=== PATIENT | male | born 1990 | race Caucasian/White ===

== ENCOUNTER 2024-03-21 15:16 | Inpatient (IN) ==
--- NOTE | 2024-03-21 15:58 | Emergency Department Note ---
Impression & Plan Bipolar disorder ED Provider Note ED Provider Note NAME: DA Peraza GSCHWENDTNER AGE:34 SEX: Male : 1990 ARRIVES VIA: Private vehicle INFORMANT: Patient ED PROVIDER(s): Betsy Nowak DO CHIEF COMPLAINT: Referred here by gas furnace installer for mental health evaluation HPI: This is a 34-year-old male presents emergency department after he spoke with his gas furnace installer and they request that he come to the ER for inpatient mental health treatment. Patient states he has been feeling unwell over the last week as he had run out of his Latuda last week and was off the medication for 5 to 7 days. He did get it refilled and restarted approximately 4 days ago. He states since restarting it he has not felt any better. He states he cries frequently for no apparent reason, feels a sense of doom, has been sleeping more, becomes hyperfocused on things at times. He denies any injury or illness. No other change in any medications. He also follows further mental health treatment with [facility]. He denies any suicidal ideation although states he has had thoughts of self-harm however no distinct plan. He does have a prior remote history of self-harm and prior inpatient mental health treatment. PAST MEDICAL HISTORY:See Below PAST SURGICAL HISTORY:See Below FAMILY HISTORY:See Below SOCIAL HISTORY:See Below HOME MEDICATIONS:See Below ALLERGIES:See Below VITALS:See Below PHYSICAL EXAMINATION: GENERAL: alert, well appearing, well nourished, no distress, non-toxic EYE EXAM: normal conjunctiva, PERRL and EOM's grossly intact OROPHARYNX: no exudate, no erythema, lips, buccal mucosa, and tongue normal and mucous membranes are moist NECK: supple, no nuchal rigidity, no adenopathy, non-tender LUNGS: Clear to auscultation. Normal chest wall mechanics, no w/r/r HEART: no murmurs, S1 normal and S2 normal ABDOMEN: abdomen soft, non-tender, normo-active bowel sounds, no masses, no rebound or guarding. BACK: Back is symmetrical on inspection and there is no deformity, no midline tenderness, no CVA tenderness. SKIN: no rashes, petechiae, orbruising UPPER EXTREMITIES: upper extremities are grossly normal. FROM, nml pulses b/l. LOWER EXTREMITIES: No pitting edema. FROM, nml pulses b/l. NEURO EXAM: Normal sensorium, cranial nerves II-XII grossly intact, normal speech, no facial droop,nogross weakness of arms, no gross weakness of legs. Gross sensation intact. No ataxia. Vital Signs: reviewed and remarkable Differential Diagnosis: mood disorder, suicidal ideation, anxiety, depression, substance abuse, toxidrome, infection, hypoglycemia, electrolyte abnormalities, ICH as well as others were considered. MEDICAL DECISION MAKING: THis is a 34 yo male referred here by his manager rn case due to concern for increased depression and mood swings after recent lapse in medications. He does follow with outpatient psychiatry also. Labs collected and sent per protocol and reassuring. Patient seen by case repairer and does desire inpatient treatment. Patient will be referred to [facility]. Patient signed out awaiting final disposition. Consultation(s): 1717: Patient seen and evaluated by case management. Patient desires inpatient mental health treatment. He will be referred to [facility]. ER Treatment Provided: See below 181: Patient signed out to Dr. Griggs awaiting [facility] evaluation for possible admission. Diagnostics Interpreted By Me: -Laboratory studies: As stated above and show below. Triage Nursing Note Reviewed Prior/Outside Records Reviewed Past Med/Surg History Problem List (Updated 03/22/24 @ 12:47 by Tiera Carmona MD) Generalized anxiety disorder with panic attacks Borderline personality disorder Chronic fatigue Post traumatic stress disorder (PTSD) Major depressive disorder, recurrent episode, severe with anxious distress Major depression, recurrent Bipolar disorder (Acute) Insomnia Medical History (Updated 03/22/24 @ 12:47 by Tiera Carmona MD) ADHD History of lipoma Asthma Surgical History Hx of inguinal hernia repair Social History Smoking Status: Current every day smoker Tobacco Type: E-cigarettes / Vaping Preferred Language: Danish Communication Ability: Effective Spinning Supervisor Required: No Beliefs That Will Affect Care: None Feels Safe at Home: Yes Gender Identity: Male Assistive Devices: Glasses Allergies Allergies Allergy/AdvReac Type Severity Reaction Status Date / Time Penicillins Allergy Verified 03/22/24 10:28 Home Meds Home Medications Medication Instructions Recorded Confirmed albuterol sulfate 90 mcg/actuation 2 puff inhalation Q4 PRN Shortness 10/15/24 10/16/24 aerosol inhaler Of Breath clonazepam 1 mg tablet 1 mg PO BID PRN Anxiety 03/21/24 03/22/24 desvenlafaxine succinate 100 mg 100 mg PO DAILY 03/21/24 03/22/24 tablet,extended release 24 hr dextroamphetamine-amphetamine ER 20 mg PO DAILY 03/21/24 03/22/24 20 mg 24hr capsule,extend release lurasidone 120 mg tablet 120 mg PO PM 03/21/24 03/22/24 prazosin 2 mg capsule 4 mg PO HS 03/21/24 03/22/24 Results & Data (ED) Vital Signs Vital Signs - 24 hr 03/21/24 15:20 Temperature 36.8 C Temperature Source Temporal Artery Scan Pulse Rate 79 Respiratory Rate 18 Respiratory Effort / Characteristics Non-Labored Spontaneous Respiratory Depth Normal Respiratory Pattern Regular Blood Pressure 125/85 Blood Pressure Mean 98 Blood Pressure Position Sitting Pulse Oximetry 98 Oxygen Delivery Method Room Air Sepsis Recent Fever Within 48 Hours No Sepsis New/Unexplained Change in Mental Status No Sepsis Action Taken by Nursing No Action Required Laboratory Data 03/21/24 16:08 03/21/24 16:08 Lab Results 03/21/24 03/21/24 03/21/24 Range/Units 16:03 16:08 18:14 WBC 7.47 (4.8-10.8) K/ul RBC 5.32 (4.70-6.10) M/uL Hgb 16.5 (14.0-18.0) g/dl Hct 46.9 (42.0-52.0) % MCV 88.2 (80.0-100.0) fL MCH 31.0 (25.0-34.0) pg MCHC 35.2 (32.0-36.0) g/dL RDW Std Deviation 38.5 (36.4-46.3) fL RDW Coeff of Vinicio 12.0 (11.5-14.5) % Plt Count 185 (130-400) K/uL MPV 11.6 (9.4-12.4) fL Immature Gran % (Auto) 0.4 % Neut % (Auto) 59.3 % Lymph % (Auto) 28.8 % [place] % (Auto) 8.4 % Eos % (Auto) 2.4 % Baso % (Auto) 0.7 % Neut # (Auto) 4.43 (1.40-6.50) K/uL Lymph # (Auto) 2.15 (1.20-3.40) K/uL [place] # (Auto) 0.63 H (0.11-0.59) K/uL Eos # (Auto) 0.18 (0.00-0.50) K/uL Baso # (Auto) 0.05 (0.00-0.20) K/uL Immature Gran # (Auto) 0.03 (0.01-0.20) K/uL Sodium 138 (136-145) mmol/L Potassium 3.8 (3.5-5.1) mmol/L Chloride 101 (98-107) mmol/L Carbon Dioxide 29 (21-32) mmol/L Anion Gap 8 (3-11) BUN 15 (6-23) mg/dl Creatinine 1.24 (0.6-1.4) mg/dl Est Cr Clr Drug Dosing 82.0 ml/min eGFR 78.73 BUN/Creatinine Ratio 12.1 (10-20) Glucose 106 H (70-99(Fasting)) mg/dl Calcium 9.7 (8.6-10.3) mg/dl Total Bilirubin 0.9 (0.2-1.0) mg/dl AST 21 (13-39) U/L ALT 24 (7-52) U/L Alkaline Phosphatase 47 (34-104) U/L Total Protein 7.7 (6.0-8.3) gm/dl Albumin 5.1 H (3.4-5.0) gm/dl Globulin 2.6 (2.5-4.0) gm/dl Albumin/Globulin Ratio 2.0 (0.9-2) TSH 1.165 (0.300-4.500) uIu/ml Urine Color Yellow Urine Appearance Clear (Clear) Urine pH 6.0 (4.5-7.5) Ur Specific [place] 1.006 (1.000-1.030) Urine Protein Negative (Negative) Urine Glucose (UA) Negative (Negative) Urine Ketones Negative (Negative) Urine Blood Negative (Negative) Urine Nitrite Negative (Negative) Urine Bilirubin Negative (Negative) Urine Urobilinogen Negative (Negative) Ur Leukocyte Esterase Negative (Negative) Salicylates < 3.0 L (3.0-30) mg/dl Urine Opiates Screen Neg (Neg) Ur Methadone, Qual Neg (Neg) Urine Fentanyl Screen Neg (Neg) Acetaminophen < 3 L (10-30) ug/ml Urine Barbiturates Neg (Neg) Ur Phencyclidine (PCP) Neg (Neg) U Amphetamin/Meth Scrn Neg (Neg) MDMA (Ecstasy) Screen Neg (Neg) U Benzodiazepines Scrn Neg (Neg) Ur Cocaine Metabolite Neg (Neg) U Marijuana (THC) Screen Pos H (Neg) Ethyl Alcohol mg/dL < 10.0 (<10.0) mg/dl SARS-CoV-2, RNA, NAAT NEGATIVE (NEGATIVE) Administered Medications Benzocaine (Benzocaine 20% (Orajel) 11.9 Gm Tube) 1 appln MT BID PRN PRN Reason: Pain Stop: 04/21/24 10:54 Last Admin: 03/22/24 11:18 Dose: 1 appln Documented By: SHELIA Desvenlafaxine Succinate (Desvenlafaxine Succinate Er Tablet) 1 tab PO DAILY [facility] Stop: 04/21/24 13:14 Last Admin: 03/22/24 13:35 Dose: 1 tab Documented By: SHELIA Miscellaneous (Remove Nicoderm Patch) 1 each N/A DAILY@0859 [facility] Stop: 04/21/24 08:58 Last Admin: 03/22/24 08:49 Dose: Not Given Documented By: SHELIA Nicotine (Nicotine 14 Mg/24 Hr Patch) 1 patch TD QAM [facility] Stop: 04/21/24 08:59 Last Admin: 03/22/24 08:47 Dose: 1 patch Documented By: SHELIA Nicotine Polacrilex (Nicotine Polacrilex 2 Mg Gum) 1 piece MT PRN PRN PRN Reason: Nicotine Withdrawal Symptoms Stop: 04/20/24 20:09 Last Admin: 03/22/24 17:35 Dose: 1 piece Documented By: Admin: 03/22/24 13:28 Dose: 1 piece Documented By: BNT Discontinued Medications Clonazepam (Clonazepam 1 Mg Tab) 1 mg PO TODAY ONE Stop: 03/21/24 21:46 Last Admin: 03/21/24 22:35 Dose: 1 mg Documented By: DMT Lurasidone HCl (Lurasidone Hcl 20 Mg Tab) 120 mg PO DAILY [facility] Stop: 04/20/24 21:59 Last Admin: 03/21/24 22:36 Dose: 120 mg Documented By: SAMANTHA Nicotine (Nicotine 21 Mg/24 Hr Tdsy) 1 patch TD QAM CARYN Stop: 04/20/24 17:44 Last Admin: 03/21/24 18:19 Dose: Not Given Documented By: LAURITA Nicotine Polacrilex (Nicotine Polacrilex 2 Mg Gum) 1 piece MT Q2H PRN PRN Reason: Anxiety/Agitation Stop: 04/20/24 17:49 Last Admin: 03/21/24 17:55 Dose: 1 piece Documented By: LAURITA Prazosin HCl (Prazosin Hcl 1 Mg Cap) 2 mg PO ONCE ONE Stop: 03/21/24 21:47 Last Admin: 03/21/24 22:35 Dose: 2 mg Documented By: SAMANTHA Discharge Plan Visit Data Chief Complaint: Mental Health Evaluation Stated Complaint: MENTAL HEALTH EVAL ED Provider: Kaleb Griggs Discharge Problem: Bipolar disorder Patient Disposition: Admitted As Inpatient Discharge Instructions Interventions: ED Discharge Assessment Last Done: 03/21/24 20:44
[2024-03-21 16:33] LABS: Basophils # (auto) 0.05 K/uL (0.00-0.20); Basophils % (auto) 0.7 %; Eosinophils # (auto) 0.18 K/uL (0.00-0.50); Eosinophils % (auto) 2.4 %; Hematocrit (blood only) 46.9 % (42.0-52.0); Hemoglobin 16.5 g/dl (14.0-18.0); Immature Granulocytes # (auto) 0.03 K/uL (0.01-0.20); Immature Granulocytes % (auto) 0.4 %; Lymphocytes # (auto) 2.15 K/uL (1.20-3.40); Lymphocytes % (auto) 28.8 %; Mean Corpuscular Hgb Conc 35.2 g/dL (32.0-36.0); Mean Corpuscular Volume 88.2 fL (80.0-100.0); Mean Platelet Volume 11.6 fL (9.4-12.4); Monocytes # (auto) 0.63 K/uL (0.11-0.59); Monocytes % (auto) 8.4 %; Neutrophils # (auto) 4.43 K/uL (1.40-6.50); Neutrophils % (auto) 59.3 %; Platelet Count 185 K/uL (130-400); RDW Standard Deviation 38.5 fL (36.4-46.3); Red Blood Count 5.32 M/uL (4.70-6.10); White Blood Count 7.47 K/ul (4.8-10.8)
[2024-03-21 16:46] LABS: Albumin Level 5.1 gm/dl (3.4-5.0); BUN Creatinine Ratio 12.1 (10-20); Bilirubin,Total 0.9 mg/dl (0.2-1.0); Calcium 9.7 mg/dl (8.6-10.3); Globulin 2.6 gm/dl (2.5-4.0); Potassium 3.8 mmol/L (3.5-5.1); Total Protein 7.7 gm/dl (6.0-8.3)
[2024-03-21 16:51] LABS: Acetaminophen < 3 ug/ml (10-30); Salicylate < 3.0 mg/dl (3.0-30)
[2024-03-21 17:01] LABS: Thyroid Stimulating Hormone 1.165 uIu/ml (0.300-4.500)
[2024-03-21] MEDS: NICOTINE POLACRILEX 2 MG GUM MT PRN (17:55)
--- NOTE | 2024-03-21 18:14 | Emergency Department Note ---
ED Visit Note 1813: Signout from Dr. Nowak. 34-year-old male with depression missing multiple doses of medications Ace. 201. Awaiting psychiatric case managers evaluation. .
[2024-03-21] MEDS: NICOTINE 21 MG/24 HR TDSY TD SCH (18:19)
[2024-03-21 18:27] LABS: Appearance Urine Clear (Clear); Bilirubin Urine Negative (Negative); Blood Urine Negative (Negative); Color Urine Yellow; Glucose Urine UA Negative (Negative); Ketones Urine Negative (Negative); Leukocyte Esterase Urine Negative (Negative); Nitrite Urine Negative (Negative); Protein Urine Negative (Negative); Specific Gravity Urine 1.006 (1.000-1.030); Urobilinogen Urine Negative (Negative)
[2024-03-21 19:02] LABS: Amphetamines+Metham, Urine Neg (Neg); Barbiturates, Urine Neg (Neg); Benzodiazepine, Urine Neg (Neg); Cocaine, Urine Neg (Neg); Fentanyl, Urine Neg (Neg); MDMA (Ecstacy), Urine Neg (Neg); Marijuana, Urine Pos (Neg); Methadone, Urine Neg (Neg); Opiate, Urine Neg (Neg); Phencyclidine, Urine Neg (Neg)
[2024-03-21] MEDS ORDERED: ALUMINUM/MAGNESIUM SUSP 30 ML UDC PO PRN (20:10)
[2024-03-21] MEDS ORDERED: MAGNESIUM HYDROXIDE SUSP 30 ML UDC PO PRN (20:10)
[2024-03-21] MEDS ORDERED: ACETAMINOPHEN 325 MG TAB PO PRN (20:10)
[2024-03-21] MEDS ORDERED: BISMUTH SUBSALICYLATE 262 MG CHEW PO PRN (20:10)
[2024-03-21] MEDS ORDERED: SODIUM CHLORIDE 0.65% NA SOLN 45 ML (OCEAN) PRN (20:10)
[2024-03-21] MEDS ORDERED: hydrOXYzine HCl 25 MG TAB PO PRN ×2 (20:10)
[2024-03-21] MEDS ORDERED: BENZOCAINE 20% (ORAJEL) 11.9 GM TUBE MT PRN (21:14)
[2024-03-21] MEDS ORDERED: ALBUTEROL HFA 8 GM INHALER INH PRN (21:47)
[2024-03-21] MEDS: clonazePAM 1 MG TAB PO ONE (22:35)
[2024-03-21] MEDS: PRAZOSIN HCL 1 MG CAP PO ONE (22:35)
[2024-03-21] MEDS: LURASIDONE HCL 20 MG TAB PO SCH (22:36)
[2024-03-22] MEDS: NICOTINE 14 MG/24 HR PATCH TD SCH (08:47)
--- NOTE | 2024-03-22 09:42 | History & Physical ---
Date of Service March 22, 2024 Impression / Recommendations Impression DA AMEZCUA is a 34-year-old M who currently lives in [place] with his partner and a roommate, has a history of BPAD, BPD, depression, anxiety, ADHD, PTSD, and was admitted on 03/21/24 20:45 on a 201 voluntary commitment for severe depression and anxiety with inability to function. Diagnostically consistent with unspecified depression with differential including MDD with severe anxious distress vs complex PTSD vs BPAD current depressive episode vs OCD. History is quite unconvincing for past episodes of annette, rather his mood fluctuations and other symptoms are more consistent with borderline personality disorder. Suspect frequent sympathetic overdrive from anxiety and trauma and that his need for sedating medications, including high dose Latuda, to manage these symptoms is then in turn leading to further compounding of fatigue and sedation. Additionally he then takes Adderall which he feels helps with motivation but which I suspect may in turn be adding to anxiety. Target symptoms of excessive fatigue, depression and anxiety are main targets for treatment. History of sleep study which was normal. No autoimmune conditions run in the family. No concerns for post-COVID fatigue. Discussed medication treatment options in detail. Discussed risks, benefits and alternatives. Patient would like to start and consented to mirtazapine for MDD/CHAPINCITO and clonidine for ADHD and off-label for PTSD night terrors as well as continuation of desvenlafaxine for MDD/CHAPINCITO/PTSD. Reviewed side effects including but not limited to: GI, MCCALL, sexual side effects with Pristiq and low BP/syncope with clonidine and sedation/increased appetite with mirtazapine. Overall I spent a total of 90 minutes for this admission including review of chart records, review of labwork, direct evaluation of the patient, counseling the patient, ordering medication, risk assessment, discussion with the psychiatric liason RN and documentation in the electronic health record. (1) Major depressive disorder, recurrent episode, severe with anxious distress: (2) Post traumatic stress disorder (PTSD): (3) Borderline personality disorder: (4) Generalized anxiety disorder with panic attacks: (5) Chronic fatigue: (6) ADHD: (7) Insomnia: Plan 03/22/2024: The patient was admitted to the [facility] ([facility] unit) on q15 min checks (behavioral with suicide precautions) for safety. The patient will participate in group, recreational, and milieu therapies and will be offered additional individual and family sessions as clinically appropriate. -Medications: * Start mirtazapine 15mg HS * Start clonidine 0.1mg HS * c/w desvenlafaxine 100mg qd * c/w Klonopin 1mg daily prn for panic attack * discontinue prazosin * discontinue Latuda * discontinue Adderall -Physical movement three times per day -Yoga/mindfulness twice a day -Discussed goal of outpatient DBT focus in therapy -Symptom questionnaires: * Y-BOCS * Rickie BPD * Mood Disorder Questionnaire Inventory Assets Strengths: supportive relationships, willing to get treatment Needs: safety and stabilization, medication adjustment, additional coping skills, increased outpatient services Suicide Risk Level Suicide Risk Level: Moderate (q15 min suicide checks) (increased anxiety and depression with intermittent SI but feels safe in the hospital and able to ask for support ) Risk Factors Assessment Male: Yes : Yes Do You Have Access To A Gun?: No Health Problems: No Mental Health Diagnoses: Yes Previous Attempt: Yes (rehearsal ) Family History of Suicide: No Previous Psychiatric Hospitalization: Yes Hopelessness: Yes Protective Factors Assessment Employed: No Stable Relationships: Yes Good Rapport with Provider: Yes Psychiatric History Identifying Data DA AMEZCUA is a 34-year-old M who currently lives in [place] with his partner and a roommate, has a history of BPAD, BPD, depression, anxiety, ADHD, PTSD, and was admitted on 03/21/24 20:45 on a 201 voluntary commitment for severe depression and anxiety with inability to function. Chief Complaint "I'm just worried, being isolated and alone". History of Present Illness He presents for psychiatric admission for worsening depression, anxiety and mood instability in the context of medication non-adherence. He recently ran out of his Latuda about 5 days ago and had a "crash" with increased anxiety, depression, fatigue and negative thoughts about himself and his future. He feels isolated, lonely and has a pervasive sense of tiredness and worry impacting his functioning. Without his medications he feels "comatose, tired." Adderall helps him feel more focused, productive and hopeful but he admits to occasionally taking more than prescribed when he feels it's not working, leading to days without it and subsequent withdrawal/crashes. His mood fluctuates throughout the day, going from feeling good to suddenly bad to good again. He feels "flat or irritable and tired", has lost interest in doing anything, not "joking or laughing or funny anymore" and doesn't feel like he has his normal personality. He's concerned about being isolated during his hospital stay as it's "not good for him." He experiences panic, especially at night, and feels anxious and nervous about being cut off from his support systems. He describes challenging symptoms of "really dramatic emotional spikes" as well as anxiety. He notes "it's hard to even think right now" and "I'm a mess in the morning". Describes that at the beginning of the month he ran out of Latuda and had gone about 3 days when in the middle of last week he reports suddenly "I just kind of crashed" with symptoms of depression, anxiety, fatigue and fearful and hopeless. He ended up not having his Latuda refill for about five days. Lately he's been laying in bed, doesn't even get out of bed to do things he enjoys like playing video games. He endorses depression and passive SI of not wanting to wake up in the morning. States he feels like he's been in "manic lows" with "heart beating out of my chest and really panicking and not knowing what to do". Prior to missing his Latuda doses his mood had been "better" but he states he always has anxiety, depression and intrusive thoughts (negative thoughts about self-worth, past trauma, worrying about the future) no matter how optimized his medications are. He reports very low energy for several years now, he's unsure why. He's been working on mindfulness with his peer support. He doesn't do anything for physical activity. He takes Adderall ER 20mg (has been on this for months, and has found it helpful, helps with focus and "positivity"; he does acknowledge sometimes he takes more of this on some days due to feeling unfocused and "out of it completely" but then he has to go without it on days at the end of the month), Desvenlafaxine 100mg (has been on this for a few months, he's unsure how much it helps), Latuda 120mg with dinner (has been on this for 6 months, seems to be helping given worsening of symptoms without it), prazosin 2mg HS (a few years, seems to help with night terrors), clonazepam 1mg daily prn (takes for panic attacks, or at bedtime, tries not to use this daily, can contribute to next day fatigue) and sometimes gabapentin 300mg HS. Psychiatric ROS notable for history of manic episode (thinks it's been a few years since this happened, recalls wanting to go out and socialize and then it goes away) and self-harm (about 5 years ago) and trauma/PTSD and possible OCD (needing to lie a certain way or pray a certain wya or covering face with blanket a certain way then things will get worse). No history of psychosis nor eating disorder. Past Psychiatric History Current Psychiatric Diagnosis: Bipolar, Borderline, PTSD, AHDH, Depression, Anxiety Outpatient Services: [place] for psych and therapy, CM and peer support Previous Psych Admissions: [facility] [place] in 2020: severe depression [place] age [age]: posted something online about classmates and felt 'tricked into signing myself in" Do You Have Access To A Gun?: No History of Previous Suicide Attempt: Yes (15 years old) Describe Attempts in the Past: recalls he considered harming himself with a gun Past Medication Trials: Depression/Anxiety: -Zoloft -Prozac (tried it during past inpt admission) -Lexapro (on and off before, never stuck with it) -Effexor (stopped due to issues with getting it refilled) -Wellbutrin (increased anxiety) -trazodone ADHD: -Vyvanse (respiratory issues) Mood stabilizers: -no hx of [place] or Depakote -Abilify -Seroquel Anxiety: -gabapentin -Buspar Past Head Trauma/Neuro History History of Concussion/Seizure: No Allergies Allergy/AdvReac Type Severity Reaction Status Date / Time Penicillins Allergy Verified 03/22/24 10:28 Home Medications Medication Instructions Recorded Confirmed Type albuterol sulfate 90 mcg/actuation 2 puff inhalation Q4 PRN Shortness 03/21/24 03/22/24 History aerosol inhaler Of Breath clonazepam 1 mg tablet 1 mg PO BID PRN Anxiety 03/21/24 03/22/24 History desvenlafaxine succinate 100 mg 100 mg PO DAILY 03/21/24 03/22/24 History tablet,extended release 24 hr dextroamphetamine-amphetamine ER 20 mg PO DAILY 03/21/24 03/22/24 History 20 mg 24hr capsule,extend release lurasidone 120 mg tablet 120 mg PO PM 03/21/24 03/22/24 History prazosin 2 mg capsule 4 mg PO HS 03/21/24 03/22/24 History Family History Family History of: Depression, Anxiety, Psychosis/ThoughtDisorder and Bipolar Family Mental Health History Comment: Mother, grandparents, cousin Alcohol History Hx of Alcohol Use Over the Past 12 Months: Yes (occassional) AUDIT Total Score: 7 He reports "barely never" Smoking Use Have You Smoked or Used Tobacco Products in the Last 30 Days: Yes tobacco type: e-cigarettes Smoking Status: Current every day smoker Smoking packs per day: 0.5 Substance History Hx of Prescription Med Misuse Over the Past 12 Months: Yes (takes more adderall than prescribed) Hx of Over the Counter Med Misuse Over the Past 12 Months: Yes Hx of Inhalent Misuse Over the Past 12 Months: No Hx of Organic Substance Use Over the Past 12 Months: No Hx of Illegal Substances/Street Drug Use Over Past 12 Months: No Problems as a Result of Past Substance Use: None Identified Personal History Living Arrangements: Apartment Highest Grade Completed: High School Graduate Employment Status: Unemployed Marital Status: Living w/ Signif. Other Beliefs That Will Affect Care: None Current Legal Problems: No Hx Legal Problems: No Hx Traumatic Life Events: Yes Patient History Medical History (Updated 03/22/24 @ 12:47 by Tiera Carmona MD) ADHD History of lipoma Asthma Surgical History Hx of inguinal hernia repair Social History Smoking Status: Current every day smoker Tobacco Type: E-cigarettes / Vaping Preferred Language: [place] Communication Ability: Effective [place] Caller Required: No Beliefs That Will Affect Care: None Feels Safe at Home: Yes Gender Identity: Male Assistive Devices: Glasses Review of Systems Review of Systems: All systems reviewed & are unremarkable except as noted in HPI & below Physical Exam Psychiatric: Orientation: alert and oriented x 3 Apperance: appropriately dressed and appropriately groomed Eye Contact: good eye contact Motor Behavior: no abnormal motor movements Speech: normal rate/rhythm/volume of speech Affect: + depressed affect and + anxious affect Mood: + depressed mood and + anxious mood Thought Process: + circumstantial thought process Thought Content: reality based without delusions Suicidal Thoughts: denies suicidal plan and denies suicidal intent; + reports suicidal thoughts (intermittent passive thoughts ) Homicidal Thoughts: denies homicidal thoughts Hallucinations: no auditory hallucinations and no visual hallucinations Cognition: recent memory grossly intact, remote memory grossly intact, attention grossly intact and language grossly intact Estimated Intelligence: consistent with education level Insight: + fair insight Judgment: + limited judgement Vital Signs (Past 24 Hours): Last Vital Signs Temp 36.0 C L 03/22/24 06:00 Pulse 114 H 03/22/24 06:10 Resp 16 03/22/24 06:00 BP 109/74 03/22/24 06:10 Pulse Ox 98 03/21/24 21:50 O2 Del Method Room Air 03/21/24 21:50 Exam Statement: A physical exam was performed in the ED by Dr. Mcgowan for the purposes of medical clearance. I accept that physical as correct and adequate for the purposes of the inpatient physical exam. Results & Data ([facility]) Laboratory Results Laboratory Results - last 24 hr 03/21/24 03/21/24 03/21/24 16:03 16:08 18:14 WBC 7.47 RBC 5.32 Hgb 16.5 Hct 46.9 MCV 88.2 MCH 31.0 MCHC 35.2 RDW Std Deviation 38.5 RDW Coeff of Vinicio 12.0 Plt Count 185 MPV 11.6 Immature Gran % (Auto) 0.4 Neut % (Auto) 59.3 Lymph % (Auto) 28.8 [place] % (Auto) 8.4 Eos % (Auto) 2.4 Baso % (Auto) 0.7 Neut # (Auto) 4.43 Lymph # (Auto) 2.15 [place] # (Auto) 0.63 H Eos # (Auto) 0.18 Baso # (Auto) 0.05 Immature Gran # (Auto) 0.03 Sodium 138 Potassium 3.8 Chloride 101 Carbon Dioxide 29 Anion Gap 8 BUN 15 Creatinine 1.24 Est Cr Clr Drug Dosing 82.0 eGFR 78.73 BUN/Creatinine Ratio 12.1 Glucose 106 H Calcium 9.7 Total Bilirubin 0.9 AST 21 ALT 24 Alkaline Phosphatase 47 Total Protein 7.7 Albumin 5.1 H Globulin 2.6 Albumin/Globulin Ratio 2.0 TSH 1.165 Urine Color Yellow Urine Appearance Clear Urine pH 6.0 Ur Specific [place] 1.006 Urine Protein Negative Urine Glucose (UA) Negative Urine Ketones Negative Urine Blood Negative Urine Nitrite Negative Urine Bilirubin Negative Urine Urobilinogen Negative Ur Leukocyte Esterase Negative Salicylates < 3.0 L Urine Opiates Screen Neg Ur Methadone, Qual Neg Urine Fentanyl Screen Neg Acetaminophen < 3 L Urine Barbiturates Neg Ur Phencyclidine (PCP) Neg U Amphetamin/Meth Scrn Neg MDMA (Ecstasy) Screen Neg U Benzodiazepines Scrn Neg Ur Cocaine Metabolite Neg U Marijuana (THC) Screen Pos H U Marijuana THC Carboxy Pending Drug Screen Comment Pending Ethyl Alcohol mg/dL < 10.0 SARS-CoV-2, RNA, NAAT NEGATIVE Current Inpatient Medications Current Inpatient Medications: Current Inpatient Medications Acetaminophen (Acetaminophen 325 Mg Tab) 650 mg PO Q4H PRN PRN Reason: Headache or Minor Fever Stop: 04/20/24 20:09 Al Hydrox/Mg Hydrox/Simethicone (Aluminum/Magnesium Susp 30 Ml Udc) 30 ml PO Q4H PRN PRN Reason: GI Upset Stop: 04/20/24 20:09 Albuterol (Albuterol Hfa 8 Gm Inhaler) 2 puffs INH Q4 PRN PRN Reason: Shortness Of Breath Stop: 04/20/24 21:46 Benzocaine (Benzocaine 20% (Orajel) 11.9 Gm Tube) 1 appln MT Q4HWA PRN PRN Reason: Pain Stop: 04/20/24 21:13 Bismuth Subsalicylate (Bismuth Subsalicylate 262 Mg Chew) 2 tab PO Q30M PRN PRN Reason: Loose Stool/Diarrhea Stop: 04/20/24 20:09 Hydroxyzine HCl (Hydroxyzine Hcl 25 Mg Tab) 50 mg PO HSZ PRN PRN Reason: Insomnia Stop: 04/20/24 20:09 Hydroxyzine HCl (Hydroxyzine Hcl 25 Mg Tab) 25 mg PO Q4H PRN PRN Reason: Anxiety Stop: 04/20/24 20:09 Magnesium Hydroxide (Magnesium Hydroxide Susp 30 Ml Udc) 30 ml PO DAILY PRN PRN Reason: Constipation Stop: 04/20/24 20:09 Miscellaneous (Remove Nicoderm Patch) 1 each N/A DAILY@0859 [facility] Stop: 04/21/24 08:58 Last Admin: 03/22/24 08:49 Dose: Not Given Nicotine (Nicotine 14 Mg/24 Hr Patch) 1 patch TD QAM [facility] Stop: 04/21/24 08:59 Last Admin: 03/22/24 08:47 Dose: 1 patch Nicotine Polacrilex (Nicotine Polacrilex 2 Mg Gum) 1 piece MT PRN PRN PRN Reason: Nicotine Withdrawal Symptoms Stop: 04/20/24 20:09 Sodium Chloride (Sodium Chloride 0.65% Na Soln 45 Ml ([place])) 1 - 2 sprays NA PRN PRN PRN Reason: Nasal Dryness/Congestion Stop: 04/20/24 20:09
[2024-03-22] MEDS: BENZOCAINE 20% (ORAJEL) 11.9 GM TUBE MT PRN (11:18)
[2024-03-22] MEDS ORDERED: clonazePAM 1 MG TAB PO PRN (12:49)
[2024-03-22] MEDS ORDERED: ALBUTEROL HFA 8 GM INHALER INH PRN (12:49)
[2024-03-22] MEDS: NICOTINE POLACRILEX 2 MG GUM MT PRN (13:28)
[2024-03-22] MEDS: DESVENLAFAXINE SUCCINATE ER TABLET PO SCH (13:35)
[2024-03-22] MEDS: cloNIDine HCL 0.1 MG TAB PO SCH (21:12)
[2024-03-22] MEDS: MIRTAZAPINE TAB 15 MG TAB PO SCH (21:13)
--- NOTE | 2024-03-23 09:04 | Psychiatric Progress Note ---
Date of Service March 23, 2024 Impression / Recommendations Impression DA AMEZCUA is a 34-year-old M who currently lives in [place] with his partner and a roommate, has a history of BPAD, BPD, depression, anxiety, ADHD, PTSD, and was admitted on 03/21/24 20:45 on a 201 voluntary commitment for severe depression and anxiety with inability to function. Diagnostically consistent with unspecified depression with differential including MDD with severe anxious distress vs complex PTSD vs BPAD current depressive episode vs OCD. History is quite unconvincing for past episodes of annette, rather his mood fluctuations and other symptoms are more consistent with borderline personality disorder. Suspect frequent sympathetic overdrive from anxiety and trauma and that his need for sedating medications, including high dose Latuda, to manage these symptoms is then in turn leading to further compounding of fatigue and sedation. Additionally he then takes Adderall which he feels helps with motivation but which I suspect may in turn be adding to anxiety. Target symptoms of excessive fatigue, depression and anxiety are main targets for treatment. History of sleep study which was normal. No autoimmune conditions run in the family. No concerns for post-COVID fatigue. A: Reports ongoing severe fatigue, low motivation and concentration difficulties but also with high levels of panic which he feels come from his difficulty doing anything. Slept poorly, he consents to increasing dose of mirtazapine. Reviewed MDQ, positive screen, notably denies any hx of excessive energy nor elevated mood nor excessive spending so certainly some overlap with endorsed symptoms of annette with those seen in BPD and other conditions but suggests possibility for episodes of hypomania in the past. Y-BOCS score of 23 consistent with likely OCD component, reports obsessions of: aggressive, contamination, miscellaneous, somatic and compulsions including of checking, cleaning, ordering and mental rituals. Rickie BPD screen was also positive with Yes for all 10 items. Discussed option for mood stabilizer given possibility of BPAD type II type clinical picture vs BPD. Reviewed options that would less sedating such as lamictal and [place], he is concerned about possible side effects. Also discussed option to trial modafinil as off-label for depression augmentation and off-label for ADHD and to help with chronic fatigue and behavioral activation goals with eventual goal that this could be tapered or discontinued. Discussed medication treatment options. Discussed risks, benefits and alternatives. He consented to modafinil for off-label use for depression and ADHD. Reviewed side effects including but not limited to: cardiac effects, increased anxiety. Overall, I spent a total of 55 minutes on this case including meeting with the patient, reviewing the chart, nursing report, multidisciplinary team meeting, orders, and documentation. (1) Major depressive disorder, recurrent episode, severe with anxious distress: (2) Post traumatic stress disorder (PTSD): (3) Borderline personality disorder: (4) Generalized anxiety disorder with panic attacks: (5) Chronic fatigue: (6) ADHD: (7) Insomnia: Plan 03/23/2024: -Increase mirtazapine to 30mg HS -Start modafinil 100mg qd -Ongoing encouragement for behavioral activation and physical activity 03/22/2024: The patient was admitted to the [facility] ([facility]) on q15 min checks (behavioral with suicide precautions) for safety. The patient will participate in group, recreational, and milieu therapies and will be offered additional individual and family sessions as clinically appropriate. -Medications: * Start mirtazapine 15mg HS * Start clonidine 0.1mg HS * c/w desvenlafaxine 100mg qd * c/w Klonopin 1mg daily prn for panic attack * discontinue prazosin * discontinue Latuda * discontinue Adderall -Physical movement three times per day -Yoga/mindfulness twice a day -Discussed goal of outpatient DBT focus in therapy -Symptom questionnaires: * Y-BOCS * Rickie BPD * Mood Disorder Questionnaire Inventory Assets Strengths: supportive relationships, willing to get treatment Needs: safety and stabilization, medication adjustment, additional coping skills, increased outpatient services Suicide Risk Level Suicide Risk Level: Moderate (q15 min suicide checks) (increased anxiety and depression with intermittent SI but feels safe in the hospital and able to ask for support ) Suicide Risk Level Comments: Risk Factors Assessment Male: Yes : Yes Do You Have Access To A Gun?: No Health Problems: No Mental Health Diagnoses: Yes Previous Attempt: Yes (rehearsal ) Family History of Suicide: No Previous Psychiatric Hospitalization: Yes Hopelessness: Yes Protective Factors Assessment Employed: No Stable Relationships: Yes Good Rapport with Provider: Yes Interval History Identifying Information DA AMEZCUA is a 34-year-old M who currently lives in [place] with his partner and a roommate, has a history of BPAD, BPD, depression, anxiety, ADHD, PTSD, and was admitted on 03/21/24 20:45 on a 201 voluntary commitment for severe depression and anxiety with inability to function. Chief Complaint "I'm just so tired, I can hardly take in the group information and I want to". Review of Systems Sleep Information Total Hours of Sleep: 7.30 Sleep Comments: HS Remeron and Clonidine Meal Information Percent Meal Consumed - Breakfast: 199 Percent Meal Consumed - Lunch: 100 Percent Meal Consumed - Dinner: 90 Subjective Subjective Patient was seen & assessed and interval progress reviewed with treatment team nursing and social work. Has been attending groups and out of his room. Not observed to be walking any laps. Slept for 7.5 hours. This morning walked during exercise group. Later in the afternoon lying in bed, encouraged again to walk and discussed importance of behavioral activation. He feels very tired with Adderall as this seemed to be the only thing that helped him overcome his lack of motivation and fatigue in the morning. Poor sleep ov ernight. Recorded as 7.5 hours but he reports waking up many many times all night and it did not feel restful. Still with significant depression and anxiety. Physical Exam Psychiatric Orientation: alert and oriented x 3 Apperance: appropriately dressed and appropriately groomed Eye Contact: good eye contact Motor Behavior: no abnormal motor movements Speech: normal rate/rhythm/volume of speech Affect: + depressed affect and + anxious affect Mood: + depressed mood and + anxious mood Thought Process: + circumstantial thought process Thought Content: reality based without delusions Suicidal Thoughts: denies suicidal plan and denies suicidal intent; + reports suicidal thoughts (intermittent thoughts ) Homicidal Thoughts: denies homicidal thoughts Hallucinations: no auditory hallucinations and no visual hallucinations Cognition: recent memory grossly intact, remote memory grossly intact, attention grossly intact and language grossly intact Estimated Intelligence: consistent with education level Insight: + limited insight Judgment: + limited judgement Vital Signs (Past 24 Hours) Last Vital Signs Temp 36.2 C L 03/23/24 06:00 Pulse 79 03/23/24 06:25 Resp 16 03/23/24 06:00 BP 112/73 03/23/24 06:25 Pulse Ox 100 03/22/24 21:24 O2 Del Method Room Air 03/22/24 21:24 Results & Data ([facility]) Current Inpatient Medications Current Inpatient Medications: Current Inpatient Medications Acetaminophen (Acetaminophen 325 Mg Tab) 650 mg PO Q4H PRN PRN Reason: Headache or Minor Fever Stop: 04/20/24 20:09 Al Hydrox/Mg Hydrox/Simethicone (Aluminum/Magnesium Susp 30 Ml Udc) 30 ml PO Q4H PRN PRN Reason: GI Upset Stop: 04/20/24 20:09 Albuterol (Albuterol Hfa 8 Gm Inhaler) 2 puffs INH Q4R PRN PRN Reason: Shortness Of Breath Stop: 04/21/24 12:48 Benzocaine (Benzocaine 20% (Orajel) 11.9 Gm Tube) 1 appln MT BID PRN PRN Reason: Pain Stop: 04/21/24 10:54 Last Admin: 03/22/24 11:18 Dose: 1 appln Bismuth Subsalicylate (Bismuth Subsalicylate 262 Mg Chew) 2 tab PO Q30M PRN PRN Reason: Loose Stool/Diarrhea Stop: 04/20/24 20:09 Clonazepam (Clonazepam 1 Mg Tab) 1 mg PO DAILY PRN PRN Reason: Anxiety Stop: 04/21/24 12:48 Clonidine HCl (Clonidine Hcl 0.1 Mg Tab) 0.1 mg PO HS CARYN Stop: 04/21/24 21:59 Last Admin: 03/22/24 21:12 Dose: 0.1 mg Desvenlafaxine Succinate (Desvenlafaxine Succinate Er Tablet) 1 tab PO DAILY CARYN Stop: 04/21/24 13:14 Last Admin: 03/23/24 08:49 Dose: 1 tab Hydroxyzine HCl (Hydroxyzine Hcl 25 Mg Tab) 50 mg PO HSZ PRN PRN Reason: Insomnia Stop: 04/20/24 20:09 Hydroxyzine HCl (Hydroxyzine Hcl 25 Mg Tab) 25 mg PO Q4H PRN PRN Reason: Anxiety Stop: 04/20/24 20:09 Magnesium Hydroxide (Magnesium Hydroxide Susp 30 Ml Udc) 30 ml PO DAILY PRN PRN Reason: Constipation Stop: 04/20/24 20:09 Mirtazapine (Mirtazapine Tab 15 Mg Tab) 15 mg PO HS CARYN Stop: 04/21/24 21:59 Last Admin: 03/22/24 21:13 Dose: 15 mg Miscellaneous (Remove Nicoderm Patch) 1 each N/A DAILY@0859 [facility] Stop: 04/21/24 08:58 Last Admin: 03/23/24 08:54 Dose: 1 each Nicotine (Nicotine 14 Mg/24 Hr Patch) 1 patch TD QAM [facility] Stop: 04/21/24 08:59 Last Admin: 03/23/24 08:49 Dose: 1 patch Nicotine Polacrilex (Nicotine Polacrilex 2 Mg Gum) 1 piece MT PRN PRN PRN Reason: Nicotine Withdrawal Symptoms Stop: 04/20/24 20:09 Last Admin: 03/23/24 08:51 Dose: 1 piece Sodium Chloride (Sodium Chloride 0.65% Na Soln 45 Ml ([place])) 1 - 2 sprays NA PRN PRN PRN Reason: Nasal Dryness/Congestion Stop: 04/20/24 20:09 Mental Health & Subst Abuse Tx Psychiatrist Date Of Appointment With Psychiatric Provider: Next week Therapist Name of Therapist: Nicole Heredia [employer] Name of Air [employer]ore: Lena Bledsoe Date of Appointment with [employer]ore: 03/28/24 Time of Appointment with Air [employer]ore: 1300 Post Discharge Appointments Primary Care Physician Name Of Family Doctor/PCP: Fatmata Knox
[2024-03-23] MEDS: MIRTAZAPINE TAB 15 MG TAB PO SCH (21:19)
[2024-03-24] MEDS: modafiniL 100 MG TAB PO SCH (09:03)
--- NOTE | 2024-03-24 15:44 | Discharge Summary ---
Date of Service March 24, 2024 History of Present Illness He presents for psychiatric admission for worsening depression, anxiety and mood instability in the context of medication non-adherence. He recently ran out of his Latuda about 5 days ago and had a "crash" with increased anxiety, depression, fatigue and negative thoughts about himself and his future. He feels isolated, lonely and has a pervasive sense of tiredness and worry impacting his functioning. Without his medications he feels "comatose, tired." Adderall helps him feel more focused, productive and hopeful but he admits to occasionally taking more than prescribed when he feels it's not working, leading to days without it and subsequent withdrawal/crashes. His mood fluctuates throughout the day, going from feeling good to suddenly bad to good again. He feels "flat or irritable and tired", has lost interest in doing anything, not "joking or laughing or funny anymore" and doesn't feel like he has his normal personality. He's concerned about being isolated during his hospital stay as it's "not good for him." He experiences panic, especially at night, and feels anxious and nervous about being cut off from his support systems. He describes challenging symptoms of "really dramatic emotional spikes" as well as anxiety. He notes "it's hard to even think right now" and "I'm a mess in the morning". Describes that at the beginning of the month he ran out of Latuda and had gone about 3 days when in the middle of last week he reports suddenly "I just kind of crashed" with symptoms of depression, anxiety, fatigue and fearful and hopeless. He ended up not having his Latuda refill for about five days. Lately he's been laying in bed, doesn't even get out of bed to do things he enjoys like playing video games. He endorses depression and passive SI of not wanting to wake up in the morning. States he feels like he's been in "manic lows" with "heart beating out of my chest and really panicking and not knowing what to do". Prior to missing his Latuda doses his mood had been "better" but he states he always has anxiety, depression and intrusive thoughts (negative thoughts about self-worth, past trauma, worrying about the future) no matter how optimized his medications are. He reports very low energy for several years now, he's unsure why. He's been working on mindfulness with his peer support. He doesn't do anything for physical activity. He takes Adderall ER 20mg (has been on this for months, and has found it help ful, helps with focus and "positivity"; he does acknowledge sometimes he takes more of this on some days due to feeling unfocused and "out of it completely" but then he has to go without it on days at the end of the month), Desvenlafaxine 100mg (has been on this for a few months, he's unsure how much it helps), Latuda 120mg with dinner (has been on this for 6 months, seems to be helping given worsening of symptoms without it), prazosin 2mg HS (a few years, seems to help with night terrors), clonazepam 1mg daily prn (takes for panic attacks, or at bedtime, tries not to use this daily, can contribute to next day fatigue) and sometimes gabapentin 300mg HS. Psychiatric ROS notable for history of manic episode (thinks it's been a few years since this happened, recalls wanting to go out and socialize and then it goes away) and self-harm (about 5 years ago) and trauma/PTSD and possible OCD (needing to lie a certain way or pray a certain wya or covering face with blanket a certain way then things will get worse). No history of psychosis nor eating disorder. Physical Exam Vital Signs (Past 24 Hours) Last Vital Signs Temp 36.1 C L 03/24/24 06:00 Pulse 63 03/24/24 06:28 Resp 16 03/24/24 06:00 BP 110/73 03/24/24 06:28 Pulse Ox 100 03/22/24 21:24 O2 Del Method Room Air 03/22/24 21:24 Principal Diagnosis Major Depressive Disorder, Borderline Personality Disorder Psychiatric Data See daily stay summary. In short, patient was engaged with the social/therapeutic milieu of the unit, safety was maintained and the patient was cooperative with care. Medication changes included discontinuation of prazosin, Latuda, Adderall and initiation of mirtazapine for MDD/insomnia/anxiety, clonidine for ADHD/insomnia, and modafinil for depression/ADHD/fatigue and they tolerated this well. A support session was held and safety plan was completed prior to discharge. They participated in safety planning and in discussions about ways to seek support and recognizing warning signs and utilizing coping skills. Reviewed ways to have their safety plan and contacts easily available should thoughts of SI re-emerge in the future. Reviewed importance of seeking emergency care should SI intensify, worsen or should they feel unsafe in the future which they agree to do. On the day of discharge they stated their mood was "overall positive" and remained future-oriented including going on vacation to [place] next week, hosting an online stephanie event on Wednesday, cooking meals and engaging in aftercare appointments for psychiatry, therapy, CM and peer support. He also discussed that he is considering trying an ganglion block for PTSD in the future. Day of Discharge Assessment Today the patient voices readiness for discharge. They note improvement in mood and anxiety. They deny thoughts of harm to self or others. Thoughts remain organized and they are clinically improved from admission. There is no evidence of psychosis. They improved in the hospital with support and medication adjustments. They agree to take medications as prescribed and keep follow-up appointments. At the time of the discharge they are deemed to be stable and appropriate for outpatient level of care. They are not deemed to be at imminent risk of harm to self or others. They are aware of emergency and crisis services. Knows to call 911 or go to nearest emergency care center if in a crisis which cannot be handled as an outpatient. Suicide risk assessment: Acute risk is low given improvement in mood and denial of SI, lack of access to lethal means, improvement in sleep, hopefulness and improvement in energy level and lessening of anxiety. Chronic risk is moderate given some non-modifiable risk factors: psychiatric co-morbid diagnoses, periods of impulsivity, emotional reactivity, prior psychiatric hospitalizations, cluster B personality disorder, childhood trauma but also with protective factors including good social support, sense of responsibility to family and social supports, outpatient care in place, positive coping skills, positive problem solving, willingness to engage with treatment, self-observation. Counseled on ways to reduce acute and chronic risk including engaging with outpatient providers, using safety plan if needed, utilizing supports, taking medication, and using coping skills. Modifiable risk factors of SI, anxiety, and depression were addressed during hospitalization through development of new coping skills, support meeting, safety planning, and medication adjustments. Discharge physical exam: See admission H&P, MSE per above and day of discharge summary. Overall, I spent a total of 55 minutes on this case including meeting with the patient, reviewing the chart, nursing report, multidisciplinary team meeting, discharge orders, anticipatory planning, safety planning, risk assessment and documentation. Transition of Care Transition Of Care Record: was reviewed with the patient Advance Directives Advance Directives Information Provided: Yes Advance Directives: No Mental Health Advance Directive: No Advance Directives on File: No Living Will: No Power of Principal Investigator: No Advance Directives Reason:: Declines as Mental Health Visit. Suicide Risk Level Suicide Risk Level Comments: Acute risk is low, see further assessment above Risk Factors Assessment Male: Yes : Yes Do You Have Access To A Gun?: No Health Problems: No Mental Health Diagnoses: Yes Substance Use Disorders: No (but polysubstance use in the past) Previous Attempt: No (rehearsal ) Family History of Suicide: No Previous Psychiatric Hospitalization: Yes Hopelessness: No Protective Factors Assessment Employed: No Stable Relationships: Yes Supportive Family: Yes Good Rapport with Provider: Yes Tobacco Cessation at Discharge Tobacco Cessation Medication Prescribed at Discharge: Offered & Prescribed Discharge Data Lab Results 03/21/24 03/21/24 03/21/24 16:03 16:08 18:14 WBC 7.47 RBC 5.32 Hgb 16.5 Hct 46.9 MCV 88.2 MCH 31.0 MCHC 35.2 RDW Std Deviation 38.5 RDW Coeff of Vinicio 12.0 Plt Count 185 MPV 11.6 Immature Gran % (Auto) 0.4 Neut % (Auto) 59.3 Lymph % (Auto) 28.8 [place] % (Auto) 8.4 Eos % (Auto) 2.4 Baso % (Auto) 0.7 Neut # (Auto) 4.43 Lymph # (Auto) 2.15 [place] # (Auto) 0.63 H Eos # (Auto) 0.18 Baso # (Auto) 0.05 Immature Gran # (Auto) 0.03 Sodium 138 Potassium 3.8 Chloride 101 Carbon Dioxide 29 Anion Gap 8 BUN 15 Creatinine 1.24 Est Cr Clr Drug Dosing 82.0 eGFR 78.73 BUN/Creatinine Ratio 12.1 Glucose 106 H Calcium 9.7 Total Bilirubin 0.9 AST 21 ALT 24 Alkaline Phosphatase 47 Total Protein 7.7 Albumin 5.1 H Globulin 2.6 Albumin/Globulin Ratio 2.0 TSH 1.165 Urine Color Yellow Urine Appearance Clear Urine pH 6.0 Ur Specific [place] 1.006 Urine Protein Negative Urine Glucose (UA) Negative Urine Ketones Negative Urine Blood Negative Urine Nitrite Negative Urine Bilirubin Negative Urine Urobilinogen Negative Ur Leukocyte Esterase Negative Salicylates < 3.0 L Urine Opiates Screen Neg Ur Methadone, Qual Neg Urine Fentanyl Screen Neg Acetaminophen < 3 L Urine Barbiturates Neg Ur Phencyclidine (PCP) Neg U Amphetamin/Meth Scrn Neg MDMA (Ecstasy) Screen Neg U Benzodiazepines Scrn Neg Ur Cocaine Metabolite Neg U Marijuana (THC) Screen Pos H Ethyl Alcohol mg/dL < 10.0 SARS-CoV-2, RNA, NAAT NEGATIVE Hospital Course (1) Major depressive disorder, recurrent episode, severe with anxious distress: (2) Post traumatic stress disorder (PTSD): (3) Borderline personality disorder: (4) Generalized anxiety disorder with panic attacks: (5) Chronic fatigue: (6) ADHD: (7) Insomnia: Plan 03/24/2024: -Tolerating medications well. Had support meeting. Future-oriented. Ready for discharge. Ongoing encouragement for behavioral activation. 03/23/2024: -Increase mirtazapine to 30mg HS -Start modafinil 100mg qd -Ongoing encouragement for behavioral activation and physical activity 03/22/2024: The patient was admitted to the [facility] ([facility] mental health unit) on q15 min checks (behavioral with suicide precautions) for safety. The patient will participate in group, recreational, and milieu therapies and will be offered additional individual and family sessions as clinically appropriate. -Medications: * Start mirtazapine 15mg HS * Start clonidine 0.1mg HS * c/w desvenlafaxine 100mg qd * c/w Klonopin 1mg daily prn for panic attack * discontinue prazosin * discontinue Latuda * discontinue Adderall -Physical movement three times per day -Yoga/mindfulness twice a day -Discussed goal of outpatient DBT focus in therapy -Symptom questionnaires: * Y-BOCS * Rickie BPD * Mood Disorder Questionnaire Mental Health & Subst Abuse Tx Psychiatrist Name of Psychiatrist: Joanne Heredia Psychiatrist's Date Of Appointment With Psychiatric Provider: 03/27/24 Time of Appointment with Psychiatrist: 2:45pm Check in Therapist Name of Therapist: Nicole Heredia Therapist's Date of Therapist Appointment: 03/28/24 Time of Therapist Appointment: 3:00 PM Wire Coiler Name of Wire Coiler: Lena Bledsoe Date of Appointment with Wire Coiler: 03/27/24 Time of Appointment with Wire Coiler: 10:00 AM Post Discharge Appointments Primary Care Physician Name Of Family Doctor/PCP: Fatmata Knox Mixer Slagman Name of Mixer Slagman: Aniket Date of Appointment with Mixer Slagman: 03/28/24 Time of Appointment with Mixer Slagman: 1:00pm Mixer Slagman Appointment Comment: resume regular meetings on Wednesday 03/28 Smoking Cessation Counseling Tobacco Cessation Medication Prescribed at Discharge: Offered & Prescribed Discharge Plan Discharge Items Patient Disposition: Home - Self-Care Reason For Visit: MENTAL HEALTH EVAL Discharge Diagnosis: Major Depressive Disorder Activity: Resume your previous activity Non-emergency contact: Primary Care Provider, Psychiatrist, Therapist and Web Architect Call non-emergency contact if: you have any medication questions and your symptoms worsen Follow-up/Referrals: Fatmata Knox [Primary Care Provider] - Diet: Regular Addtl Attending Provider Instructions: Optional mobile apps we discussed: -Suicide safety plan -Virtual Hope Box SPECIAL CARE INSTRUCTIONS: 1. Follow through with your scheduled aftercare appointments. If unable to keep an appointment, please call to reschedule. 2. Take your medication only as prescribed. Medication should not be changed or stopped without the approval of your doctor. In the event of worsening symptoms or concerns about side effects, contact your doctor immediately. 3. Utilize new healthy coping skills, anger management skills, and stress management skills learned during your hospitalization. Journal feelings and process them with a support person. Identify stressors or situations that may result in relapse, deterioration or inappropriate behaviors and develop a plan to deal with those issues. 4. If your coping skills are ineffective and you are in crisis, contact your outpatient providers for direction. If unable to reach your providers, please call the [facility] CRISIS LINE AT , go to the [facility] walk-in center at [address], [place], or go to the closest Emergency Room. 5. Avoid alcohol and un-prescribed drugs. 6. You have been provided with the Mental Health Advance Directives Pamphlet for your review. 7. Your condition is stable for discharge to outpatient level of care, but recovery is an ongoing process. Ifthoughts to harm yourself or others return, follow the safety plan developed during your stay. Planning for a safe return home includes securing weapons. Our treatment team recommends weaponsbe removed from the home until your outpatient provider reassesses your progress. In rare cases where the items themselvescannot be removed, guns and ammunitionshould be secured separatelyand keys stored by a reliable personoutside of the home. If you were admitted on an involuntary commitment, the police or other legal authorities may be involved in this process. AFTERCARE APPOINTMENTS: * Please call your insurance company prior to your scheduled appointment to confirm your aftercare providers are covered. Take your insurance information to your appointments. WHO TO CALL AND WHEN: Medical Emergencies: For questions or emergencies related to your hospital stay, please contact the Inpatient Behavioral Health Unit at [phone]. A psychology clinician is on-call 28/12 for the Behavioral Health Unit for emergencies At any time you feel your situation is an emergency, you may also call 911 immediately. National Crisis Hotline: 763 Pending Studies at Discharge: No Stand-Alone Forms: My [facility] [employer], Smoking Cessation Medications and DC Order Prescriptions: New clonidine HCl 0.1 mg Tablet 0.1 mg PO HS 30 Days Qty: 30 0RF nicotine 7 mg/24 hr Patch 24 Hour 1 patch transdermal QAM 30 Days Qty: 14 1RF nicotine (polacrilex) [Nicorette] 2 mg Gum 2 mg MT PRN PRN (Reason: nicotine cravings) 30 Days Qty: 110 0RF modafinil 100 mg Tablet 100 mg PO QAM 30 Days Qty: 30 0RF mirtazapine 30 mg tablet 30 mg PO HS 30 Days Qty: 30 0RF Continued albuterol sulfate 90 mcg/actuation HFA aerosol inhaler 2 puff INHALATION Q4 PRN (Reason: Shortness Of Breath) desvenlafaxine succinate 100 mg tablet extended release 24 hr 100 mg PO DAILY Changed clonazepam 1 mg tablet 1 mg PO DAILY PRN (Reason: Anxiety) Qty: 0 0RF Rx Instructions: 0.5 to 1mg PO BID PRN for anxiety Discontinued dextroamphetamine-amphetamine 20 mg capsule,extended release 24hr 20 mg PO DAILY lurasidone 120 mg tablet 120 mg PO PM Rx Instructions: Take 1 tablet every evening with food of at least 350 calories prazosin 2 mg Capsule 4 mg PO HS Rx Instructions: take 2 capsules every evening before bedtime Discharge Orders: Discharge Order (Routine); Ordered 03/24/24 Ordered By: Tiera Carmona Admission Data Admit Date/Time: 03/21/24 20:45 Attending Provider: Tiera Carmona Admit Provider: Tiera Carmona Primary Care Provider: Fatmata Knox Other Interventions: Discharge Summary Assessment (RN) Last Done: 03/24/24 16:28 PSY Interdisciplinary Discharge Planning Last Done: 03/24/24 16:28 Coding Level of Care Code 91073 D/C day mgmt > 30 min Diagnoses Major depressive disorder, recurrent episode, severe with anxious distress F33.2 Post traumatic stress disorder (PTSD) F43.10 Borderline personality disorder F60.3 Generalized anxiety disorder with panic attacks F41.1; F41.0 Chronic fatigue R53.82 ADHD F90.9 Insomnia G47.00
[2024-03-25 13:37] LABS: Marijuana Quant, GCMS Urine 19 ng/mL (<5)
== END 2024-03-24 17:10 | disposition home or self-care (01) | DRG 885 ==
LOC: ED 15:16 → 3S 20:44
DX: Z79.899 Other long term (current) drug therapy; Z56.0 Unemployment, unspecified; F90.9 Attention-deficit hyperactivity disorder, unspecified type; Z88.0 Allergy status to penicillin; F33.2 Major depressive disorder, recurrent severe without psychotic features; F43.10 Post-traumatic stress disorder, unspecified; G47.00 Insomnia, unspecified; F17.290 Nicotine dependence, other tobacco product, uncomplicated; Z11.52 Encounter for screening for COVID-19; F60.3 Borderline personality disorder; F41.0 Panic disorder [episodic paroxysmal anxiety]